=== PATIENT | female | born 2000 | race Caucasian/White ===

== ENCOUNTER 2024-07-13 10:19 | Day surgery (SDC) | payer BC ==
[2024-07-11 14:53] VITALS: BMI 22.3
[2024-07-13] MEDS ORDERED: CEFAZOLIN 2 GM VIAL ONE (10:31)
[2024-07-13] MEDS ORDERED: Bupivacaine PF 0.5% 30 ML VIAL ONE (10:32)
[2024-07-13] MEDS ORDERED: fentaNYL 50 mcg/mL 1 mL Vial ONE ×2 (11:41→13:45)
[2024-07-13] MEDS ORDERED: PROPOFOL 40 ML ONE (11:41)
[2024-07-13] MEDS ORDERED: Lidocaine 1% PF 5 ML VIAL ONE (11:43)
[2024-07-13] MEDS ORDERED: Sevoflurane 250 ML INH ANEST BOTTLE ONE (11:50)
[2024-07-13] MEDS ORDERED: Midazolam HCl 2 mg/2 ml Vial ONE (12:06)
[2024-07-13] MEDS ORDERED: Dexamethasone 20 MG/5 ML VIAL ONE (12:21)
[2024-07-13] MEDS ORDERED: Ondansetron PF 4 MG/2 ML Vial ONE (12:21)
[2024-07-13] MEDS ORDERED: Ketorolac Tromethamine 30 MG (1 mL) VIAL ONE (13:25)
[2024-07-13] MEDS ORDERED: Meperidine HCl/PF 25 MG (1 mL) VIAL ONE (13:51)
[2024-07-13] MEDS ORDERED: HYDROcodone/Acetaminophen 5/325 mg Tablet ONE (14:32)
== END 2024-07-13 15:30 | disposition home or self-care (01) ==
LOC: CSHSDC 10:19
PROVIDERS: ATTEND Podiatrist Foot & Ankle Surgery
PROC: 0SP Lower Joints, Removal (ICD-10-PCS; principal; 2024-07-13)
PROC: 0SRQ0JZ Replacement of Left Toe Phalangeal Joint with Synthetic Substitute, Open Approach (ICD-10-PCS; principal; 2024-07-13)
PROC: 0SP Lower Joints, Removal (ICD-10-PCS; principal; 2024-07-13)
DX: M20.42 Other hammer toe(s) (acquired), left foot (principal); T84.84XA Pain due to internal orthopedic prosthetic devices, implants and grafts, initial encounter; F32.A Depression, unspecified; F51.5 Nightmare disorder; K52.9 Noninfective gastroenteritis and colitis, unspecified; F41.1 Generalized anxiety disorder; Z91.09 Other allergy status, other than to drugs and biological substances; Z79.899 Other long term (current) drug therapy; Y83.1 Surgical operation with implant of artificial internal device as the cause of abnormal reaction of the patient, or of later complication, without mention of misadventure at the time of the procedure
CPT/HCPCS: J0665; J1100; J1885; J2175; J2250; J2405; J2704; J3010